=== PATIENT | male | born 1975 | race Caucasian/White ===

== ENCOUNTER 2017-03-20 13:12 | Emergency (ER) | payer OTHER ==
--- NOTE | ~2017-03-20 | CT4 ---
[facility] A Service [facility] RADIOLOGY TEXT RESULTS PATIENT: AARON MO LOCATION: SED : 79 UNIT #: [id number] AGE: [address]: Chandrakant Guzman MD SEX: M ORDER DR: [id number] [address] [address] [id number] MR#: [id number] Acc #: [id number] NAME: AAORN MO : 1975 SEX: M STUDY DATE/TIME: 03/20/2017 14:17 UNIT: SED ROOM: STUDY DESCRIPTION: CT Abd and Pelv Wo Cont Attending Physician: Chandrakant Guzman M.D. Ordering Physician: Chandrakant Guzman M.D. Primary Care Physician: Primary Care Physician No MEDICAL IMAGING REPORT This report is preliminary unless electronic signature is present. EXAM CT abdomen and pelvis without contrast HISTORY Right lower groin pain after moving boxes three weeks ago. TECHNIQUE Axial 5 mm images were obtained through the abdomen and pelvis without IV or oral contrast. This CT exam was performed with one or more of the following radiation dose reduction techniques: automatic exposure control, adjustment of mA and/or kV according to patient size, and iterative reconstruction. FINDINGS The lung bases are clear. The liver, gallbladder, spleen, pancreas, and adrenal glands are normal. The bowel including the appendix appears normal. The aorta is normal in size. There is no adenopathy. Bladder and prostate gland are normal. I do not see any evidence of an inguinal hernia. The bones are unremarkable. IMPRESSION 1. Normal appendix. 2. No hernias visible. 3. Normal study. Dictated by... Layo Dean M.D. THIS IS AN ELECTRONICALLY VERIFIED REPORT [facility] A Service [facility] RADIOLOGY TEXT RESULTS PATIENT: AARON MO LOCATION: SED : 79 UNIT #: [id number] AGE: [address]: Chandrakant Guzman MD SEX: M ORDER DR: Layo Dean M.D. at 03/21/2017 7:06 AM ARIEL/renata TD: 03/20/2017 19:00 JOB #: [id number] MEDICAL IMAGING REPORT Page 1 of 1
[~2017-03-20 13:12] MED LIST: ASPIRIN81 M2 PO; BRILINTA90 MG PO; COREG3.125 MG PO; LIPITOR40 MG PO; NITROGLYCERIN0.4 MG SL; NO MEDICATIONS; VOLTAREN75 MG PO; ZESTRIL2.5 MG PO
[2017-03-20] MEDS ORDERED: NO MEDICATIONS (13:16)
[2017-03-20 13:39] LABS: URINE SOURCE CLEAN CATCH
[2017-03-20 13:41] LABS: URINE APPEARANCE CLEAR; URINE BILIRUBIN NEG (NEG); URINE BLOOD NEG (NEG); URINE COLOR YELLOW; URINE GLUCOSE NEG (NORM); URINE KETONE NEG (NEG); URINE LEUKOCYTE ESTERASE NEG (NEG); URINE NITRATE NEG (NEG); URINE PROTEIN NEG (NEG); URINE UROBILINOGEN 0.2 MG/DL (NORM)
[2017-03-20 13:43] LABS: MICRO INDICATED? NO
== END 2017-03-20 16:23 | disposition home or self-care (01) ==
LOC: SED 13:12
PROVIDERS: Emergency Medicine
DX: R10.30 Lower abdominal pain, unspecified (principal); F17.210 Nicotine dependence, cigarettes, uncomplicated
CPT/HCPCS: 74176; 81003; 99284